=== PATIENT | female | born 1985 | race African-American/Black ===

== ENCOUNTER 2018-07-12 21:05 | Emergency (ER) | payer OTHER ==
[2018-07-12 22:33] LABS: ABSOLUTE BASOPHIL COUNT 0 /CUMM (0.0-0.2); ABSOLUTE EOSINOPHIL COUNT 0.3 /CUMM (0.0-0.7); ABSOLUTE GRANULOCYTE CT 3.3 /CUMM (1.4-6.5); ABSOLUTE LYMPH COUNT 3.1 /CUMM (1.2-3.4); ABSOLUTE MONOCYTE COUNT 0.4 /CUMM (0.10-0.60); BASOPHIL % 0.4 % (0.0-2.0); EOSINOPHIL % 4.4 % (0-5); GRANULOCYTE % 45.7 % (42.2-75.2); HEMATOCRIT 33.2 % (37-47); MEAN CORPUSCULAR HGB 27.5 PG (27.0-31.0); MEAN CORPUSCULAR HGB CONC 32.5 G/DL (33.0-37.0); MEAN CORPUSCULAR VOLUME 84.8 FL (81.0-99.0); PLATELET COUNT 262 /CUMM (130-400); RBC DISTRIBUTION WIDTH 16.3 % (11.5-14.5); RED BLOOD CELL CT 3.91 /CUMM (4.20-5.40); WHITE BLOOD CELL COUNT 7.2 /CUMM (4.8-10.8)
--- NOTE | 2018-07-12 23:09 | ED GENERAL ADULT ---
History of Present Illness General Chief Complaint: General Adult Stated Complaint: "MY BLOOD PRESSURE IS HIGH" Source: patient Exam Limitations: no limitations Vital Signs & Intake/Output Vital Signs & Intake/Output Vital Signs Date Time Temp Pulse Resp B/P B/P Pulse O2 O2 Flow FiO2 Mean Ox Delivery Rate 07/13 0004 192/96 07/12 2352 98.0 77 18 205/93 97 07/12 2315 98.0 86 18 226/116 07/12 2246 98.0 86 18 226/116 98 07/12 2111 99.1 83 17 206/140 98 Room Air ED Intake and Output 07/13 0000 07/12 1200 Intake Total 0 Output Total Balance 0 Intake, Oral 0 Allergies Coded Allergies: No Known Allergies (07/12/18) Reconcile Medications Nifedipine (Procardia XL) 90 MG TAB.ER.24 1 TAB PO DAILY blood pressure Triage Note: PT TO ED, STATES, "FEEL LIKE MY BLOOD PRESSURE I S HIGH." REPORTS SHE RECENTLY MOVED, IS SWITCHING DRS, AND UNABLE TO FILL PRESCRIPTION FOR NIFEDIPINE UNTIL 07/24/18. BP 206/140 IN TRIAGE. REPORTS HEADACHE, DENIES VISUAL CHANGES. LAST TOOK BP MED LAST TUESDAY. Triage Nurses Notes Reviewed? yes Onset: Gradual Duration: day(s): Timing: recent history : No Patient currently breastfeeds: No HPI: 33yo female with hx of HTN presents to ED complaining of elevated blood pressure. Patient states that she ran out of her blood pressure medication about 2 months ago, the patient was formerly on nifedipine 90 mg daily. Patient states that her pharmacy did fill prescription for nifedipine 30mg and patient states she was taking a total of 60mg daily for the past month however ran out recently. Patient states that today she had a mild headache which has since resolved. She took her blood pressure and found it to be elevated at [facility] so she presented here. Patient denies chest pain, dyspnea, visual changes, vomiting. (Thelma Brizuela) Past History Travel History Traveled to [place] past 21 day No Medical History Any Pertinent Medical History? see below for history Cardiovascular: hypertension Blood Disorders: anemia Surgical History Surgical History: non-contributory Psychosocial History What is your primary language Angolan Tobacco Use: Current Daily Use Daily Tobacco Use Amount/Type: => 5 Cigarettes daily Family History Hx Contributory? No (Thelma Brizuela) Review of Systems Review of Systems Constitutional: Reports: no symptoms. EENTM: Reports: no symptoms. Respiratory: Reports: no symptoms. Cardiovascular: Reports: see HPI. GI: Reports: no symptoms. Genitourinary: Reports: no symptoms. Musculoskeletal: Reports: no symptoms. Skin: Reports: no symptoms. Neurological/Psychological: Reports: see HPI. Hematologic/Endocrine: Reports: no symptoms. Immunologic/Allergic: Reports: no symptoms. All Other Systems: Reviewed and Negative (Jacquelyn VALLE,Thelma Boswell) Physical Exam Physical Exam General Appearance: well developed/nourished, no apparent distress, alert, awake Head: atraumatic, normal appearance Eyes: Bilateral: normal appearance, PERRL, EOMI. Ears, Nose, Throat: normal pharynx, hearing grossly normal Neck: normal inspection, supple, full range of motion Respiratory: normal breath sounds, no respiratory distress, lungs clear Cardiovascular: regular rate/rhythm Peripheral Pulses: 2+ radial (R), 2+ radial (L) Gastrointestinal: normal bowel sounds, soft, non-tender, no organomegaly Back: normal inspection, normal range of motion Extremities: normal inspection, normal range of motion Neurologic/Psych: awake, alert, oriented x 3, lead care manager II-XII nml as tested Skin: intact, normal color, warm/dry Core Measures ACS in differential dx? No CVA/TIA Diagnosis: No Sepsis Present: No Sepsis Focused Exam Completed? No (Jacquelyn VALLE,Thelma Boswell) Progress Differential Diagnoses I considered the following diagnoses in my evaluation of the patient: [Essential hypertension, hypertensive urgency, hypertensive emergency, medication noncompliance, ICH] Plan of Care: Orders Procedure Date/time Status TROPONIN LEVEL 07/12 2218 Complete HUMAN BETA HCG SCREEN 07/12 2218 Complete COMPREHENSIVE METABOLIC PANEL 07/12 2218 Complete CBC WITHOUT DIFFERENTIAL 07/12 2218 Complete EKG 07/12 2111 Active Laboratory Tests 07/12/182225: Anion Gap 8, Estimated GFR > 60, BUN/Creatinine Ratio 12.9, Glucose 86, Calcium 9.2, Total Bilirubin 0.2, AST 23, ALT 25, Alkaline Phosphatase 50, Troponin I < 0.01, Total Protein 6.8, Albumin 4.0, Globulin 2.8, Albumin/Globulin Ratio 1.4, Total Beta HCG NEGATIVE, CBC w Diff NO MAN DIFF REQ, RBC 3.91 L, MCV 84.8, MCH 27.5, MCHC 32.5 L, RDW 16.3 H, MPV 9.0, Gran % 45.7, Lymphocytes % 43.4, Monocytes % 6.1, Eosinophils % 4.4, Basophils % 0.4, Absolute Granulocytes 3.3, Absolute Lymphocytes 3.1, Absolute Monocytes 0.4, Absolute Eosinophils 0.3, Absolute Basophils 0 Patient has no active headache at this time. She is neurologically intact without focal neurologic deficit. Suspicion for acute intracranial abnormality at this time. Patient's blood pressure has been reduced following antihypertensive agents here in the emergency department. She is currently asymptomatic. Her labs are stable, EKG in sinus rhythm. Patient has been off of her blood pressure medication. She will require nifedipine refill and further blood pressure checks. Patient given referral to [facility] and given medication refill. She was encouraged to check her blood pressure regularly further elevated readings. She'll follow up with primary care as soon as possible. Patient agrees with the plan of care. Discussed findings with Dr. Mullins who agrees with this plan. Diagnostic Imaging: Viewed by Me: Radiology Read. Discussed w/RAD: Radiology Read. Radiology Impression: PATIENT: KG THOMAS PRESENT AGE: 33 PATIENT ACCOUNT NO: [id number] : 85 LOCATION: [facility] ORDERING PHYSICIAN: Thelma VALLE SERVICE DATE: 07/12/18 EXAM TYPE: RAD - XRY-CHEST XRAY, TWO VIEWS EXAMINATION: CHEST 2 VIEWS CLINICAL INFORMATION: Hypertension. COMPARISON: None. TECHNIQUE: PA and lateral views of the chest were obtained. FINDINGS: The cardiac silhouette is not enlarged. The mediastinal and hilar contours are unremarkable. There are neither pleural effusions nor pneumothoraces. There are no consolidations. The osseous structures are unremarkable. IMPRESSION: No evidence for acute disease. DICTATED BY: Anthony Heath MD DATE/TIME DICTATED:07/12/182337 CUSTOM SKI MAKER: KIM DATE/TIME TRANSCRIBED:07/12/182337 CONFIDENTIAL, DO NOT COPY WITHOUT APPROPRIATE AUTHORIZATION. <Electronically signed in Other Vendor System> SIGNED BY: Anthony Heath MD 07/12/18 0064 Initial ED EKG: sinus rhythm @80bpm (Jacquelyn VALLE,Thelma Boswell) Departure Departure Disposition: HOME OR SELF CARE Condition: Stable Clinical Impression Primary Impression: Hypertension Referrals: Patient Has No Primary Care Dr (PCP/Family) Additional Instructions: Begin blood pressure medication as prescribed. Follow-up with the primary care doctor you were referred to today. Return if worsening symptoms or concerns. Please note that there might be incidental findings in your evaluation that are unrelated to the current emergency department visit. Please notify your primary care doctor about this emergency department visit in order to obtain and review all of the testing performed so that these incidental findings can be monitored as needed. If you had an x-ray performed, please understand that some fractures may not be seen on the initial set of x-rays. If your symptoms persist you might need a repeat set of x-rays to check for such a fracture. If you had a laceration evaluated, please understand that foreign bodies such as glass or wood may not be visible to the naked eye or on plain x-rays. If the wound becomes red, swollen, increasingly more painful or if there is any drainage from the wound, please have it reevaluated by a physician for the possibility of a retained foreign body. If you're unable to follow up as outlined in the discharge instructions please return to the emergency department. Thank you for choosing the [facility] Emergency Department for your care. It was a pleasure to serve you today. Departure Forms: Customer Survey General Discharge Information Prescriptions: Current Visit Scripts Nifedipine (Procardia XL) 1 TAB PO DAILY #30 TAB (Thelma Brizuela) PA/PATIENT TRANSPORTATION DRIVER Co-Sign Statement Statement: ED Attending supervision documentation- I saw and evaluated the patient. I have also reviewed all the pertinent lab results and diagnostic results. I agree with the findings and the plan of care as documented in the PA's/PATIENT TRANSPORTATION DRIVER's documentation. x I have reviewed the ED Record and agree with the PA's/PATIENT TRANSPORTATION DRIVER's documentation. [] Additions or exceptions (if any) to the PAs/PATIENT TRANSPORTATION DRIVER's note and plan are summarized below: [] (Harpreet VENTURA,Willi) Critical Care Note Critical Care Note Critical Care Time: non-applicable (Jacquelyn VALLE,Thelma Boswell)
--- NOTE | 2018-07-12 23:42 | RADIOLOGY REPORT ---
EXAMINATION: CHEST 2 VIEWS CLINICAL INFORMATION: Hypertension. COMPARISON: None. TECHNIQUE: PA and lateral views of the chest were obtained. FINDINGS: The cardiac silhouette is not enlarged. The mediastinal and hilar contours are unremarkable. There are neither pleural effusions nor pneumothoraces. There are no consolidations. The osseous structures are unremarkable. IMPRESSION: No evidence for acute disease.
[2018-07-13 00:04] VITALS: BP 192/96
[2018-07-13] MEDS ORDERED: PROCARDIA XL90 M1 PO (00:26)
== END 2018-07-13 00:48 ==
LOC: ERH 21:05
PROVIDERS: Physician Assistant
DX: I10 Essential (primary) hypertension (principal); F17.210 Nicotine dependence, cigarettes, uncomplicated; D64.9 Anemia, unspecified
CPT/HCPCS: 71046; 93005; 93010; 96374